=== PATIENT | female | born 1975 | race Caucasian/White ===

== ENCOUNTER 2022-12-31 10:16 | Outpatient (CLI) | payer BC, SELFPAY ==
--- NOTE | ~2022-12-31 | US_ITS ---
EXAMINATION: US pelvic complete w TV DATE: 12/31/2022 10:59 INDICATION: Positive test. Comparison:No prior studies for comparison. TECHNIQUE: Multiple transabdominal and endovaginal sonographic images of the pelvis performed. FINDINGS: The uterus measures 9.5 x 5.1 x 3.9 cm. The endometrial complex measures 5 mm. There is a u terine fibroid at the fundus measuring 3 cm. The ovaries are not visualized due to bowel gas. No evidence for intrauterine . There is no free fluid in the pelvis. There are no abnormal masses seen on either side. IMPRESSION: 1. No evidence for intrauterine . Differential diagnosis includes very early intrauterine pr egnancy, failed and ectopic . Recommend follow-up with ultrasound and beta hCG lev els as clinically indicated. Reviewed, dictated and finalized at location L. IMPRESSION: 1. No evidence for intrauterine . Differential diagnosis includes very early intrauterine , failed and ectopic . Recommen d follow-up with ultrasound and beta hCG levels as clinically indicated.
== END 2022-12-31 10:17 | disposition home or self-care (01) ==
LOC: CHSIMG 10:18
PROVIDERS: PCP Family Medicine; Visit Provider Family Medicine
DX: Z32.01 Encounter for pregnancy test, result positive (principal)
CPT/HCPCS: 76830; 76856

== ENCOUNTER 2023-01-01 09:44 | Outpatient (CLI) | payer BC, SELFPAY ==
--- NOTE | ~2023-01-01 | CT_ITS ---
EXAMINATION: CT abdomen pelvis w con INDICATION: Elevated serum beta hCG and a female not TECHNIQUE: Computed tomographic images of the abdomen and pelvis were obtained after the administrati on of 100 cc of Omnipaque 350 intravenous contrast. The dose-length product (DLP) was 1531.77 mGy-cm. Automated exposure control and iterative reconstruction technique were employed. COMPARISON: None available FINDINGS: Minimal dependent atelectasis is present in the lung bases. The heart size is normal. The l iver is diffusely low in attenuation when compared with the spleen, consistent with hepatic steatosis . The spleen, pancreas, and adrenal glands are normal. Stones are present in the nondistended gallbla dder. The kidneys are unremarkable. No pathologically enlarged abdominal or pelvic lymph nodes are id entified. No free intraperitoneal gas or evidence of bowel obstruction. The uterus and adnexa have a normal CT appearance. There is an umbilical hernia containing fat. IMPRESSION: 1. No CT correlate for the patient's symptoms. Reviewed, dictated and finalized at location F.
[2023-01-01 10:28] LABS: Estimated Glomerular Filt Rate > 60
== END 2023-01-01 09:45 | disposition home or self-care (01) ==
LOC: CHSIMG 09:48
PROVIDERS: Visit Provider Family Medicine
DX: R79.89 Other specified abnormal findings of blood chemistry (principal)
CPT/HCPCS: 36415; 74177; 84702; Q9967